=== PATIENT | male | born 1995 | race Caucasian/White ===

== ENCOUNTER 2019-01-21 17:23 | Emergency (ER) | payer SELFPAY ==
[2019-01-21] MEDS ORDERED: KETOROLAC TROMETHAMINE INJ/PF 30 MG/1 ML SDV IV ONE (18:21)
[2019-01-21] MEDS ORDERED: ONDANSETRON HCL INJ/PF 4 MG/2 ML SDV IV ONE ×2 (18:21→19:39)
--- NOTE | 2019-01-21 18:23 | ER Document Report ---
Addendum entered and electronically signed by CLAUDINE KELLER NP 01/21/19 18:57: Course - Re-evaluation Re-evalutation: 01/21/19 18:57 Radiology on phone reports patient has a pneumomediastinum. Charge nurse aware. - Vital Signs Vital signs: Temp Pulse Resp BP Pulse Ox 98.6 F 103 H 18 113/69 98 01/21/19 18:01 01/21/19 18:01 01/21/19 18:01 01/21/19 18:01 01/21/19 18:01 - Laboratory Result Diagrams: 01/21/19 18:43 01/21/19 18:43 Original Note: ED Medical Screen (RME) - General Chief Complaint: Nausea/Vomiting/Diarrhea Stated Complaint: VOMITING Time Seen by Provider: 01/21/19 18:17 Primary Care Provider: ROSAMARIA OLIVER MD [Primary Care Provider] - Follow up as needed Mode of Arrival: Ambulatory Information source: Patient Notes: Patient presents emergency department with complaints of vomiting diarrhea that started last night. Also complains that he cannot breathe in the left upper quad abdominal pain. Denies fever. Reports his son was sick last week. Patient looks uncomfortable. Respiratory rate was even unlabored. Left upper quad left lower quad tender to palpate. Denies trauma. I have greeted and performed a rapid initial assessment of this patient. A comprehensive ED assessment and evaluation of the patient, analysis of test results and completion of the medical decision making process will be conducted by additional ED providers. Dictation of this chart was performed using voice recognition software; ther efore, there may be some unintended grammatical errors. TRAVEL OUTSIDE OF THE [place] IN LAST 30 DAYS: No - Related Data Allergies/Adverse Reactions: No Known Allergies Allergy (Verified 01/21/19 17:25) Physical Exam - Vital signs Vitals: Temp Pulse Resp BP Pulse Ox 98.6 F 103 H 18 113/69 98 01/21/19 18:01 01/21/19 18:01 01/21/19 18:01 01/21/19 18:01 01/21/19 18:01 Course - Vital Signs Vital signs: Temp Pulse Resp BP Pulse Ox 98.6 F 103 H 18 113/69 98 01/21/19 18:01 01/21/19 18:01 01/21/19 18:01 01/21/19 18:01 01/21/19 18:01 Doctor's Discharge - Discharge Referrals: ROSAMARIA OLIVER MD [Primary Care Provider] - Follow up as needed
[2019-01-21 18:53] LABS: HEMOGLOBIN 17.4 g/dL (13.5-17.0); MEAN CORPUSCULAR HEMOGLOBIN 29.2 pg (27.0-33.4); MEAN CORPUSCULAR HGB CONC 34.1 g/dL (32.0-36.0); MEAN CORPUSCULAR VOLUME 86 fl (80-97); PLATELET COUNT 339 10^3/uL (150-450); RED BLOOD COUNT 5.95 10^6/uL (4.35-5.55); RED CELL DISTRIBUTION WIDTH 13.4 % (11.5-14.0); WHITE BLOOD COUNT 22.9 10^3/uL (4.0-10.5)
--- NOTE | 2019-01-21 19:01 | RADIOLOGY REPORT (SQ) ---
EXAM DESCRIPTION: CHEST 2 VIEWS COMPLETED DATE/TIME: 01/21/2019 6:41 pm REASON FOR STUDY: diff breathing, upper back pain COMPARISON: 08/29/2015 TECHNIQUE: Frontal and lateral radiographic views of the chest acquired. NUMBER OF VIEWS: Two view. LIMITATIONS: None. FINDINGS: LUNGS AND PLEURA: No pneumothorax. No consolidation or pleural effusion. MEDIASTINUM AND HILAR STRUCTURES: Pneumomediastinum. HEART AND VASCULAR STRUCTURES: Stable. BONES: No acute findings. HARDWARE: None in the chest. OTHER: No other significant finding. IMPRESSION: Pneumomediastinum. No other acute findings. COMMENT: Results were called to Dr. Thompson at 1855 hours. TECHNICAL DOCUMENTATION: JOB ID: [id number] [place]-72 2010 [employer]- All Rights Reserved Reading location - IP/workstation name: [facility] [facility]
[2019-01-21 19:18] LABS: ALANINE AMINOTRANSFERASE 48 U/L (21-72); ALKALINE PHOSPHATASE 88 U/L (38-126); ASPARTATE AMINO TRANSFERASE 42 U/L (17-59); BILIRUBIN,DIRECT 0.5 mg/dL (0.0-0.4); BILIRUBIN,TOTAL 1.9 mg/dL (0.2-1.3); BLOOD UREA NITROGEN 20 mg/dL (7-20); CALCIUM 11.9 mg/dL (8.4-10.2); GLUCOSE 168 mg/dL (75-110); POTASSIUM 4.4 mmol/L (3.6-5.0); TOTAL PROTEIN 10.9 g/dL (6.3-8.2)
[2019-01-21 19:21] LABS: ABSOLUTE LYMPHOCYTES# (MANUAL) 1.1 10^3/uL (0.5-4.7); ABSOLUTE MONOCYTES # (MANUAL) 0.9 10^3/uL (0.1-1.4); BAND NEUTROPHILS % (MANUAL) 1 % (3-5); BASOPHILS % (MANUAL) 0 % (0-2); EOSINOPHILS % (MANUAL) 0 % (0-6); LYMPHOCYTES % (MANUAL) 5 % (13-45); MONOCYTES % (MANUAL) 4 % (3-13); SEGMENTED NEUTROPHILS % (MAN) 90 % (42-78); TOTAL CELLS COUNTED 100
[2019-01-21 19:23] LABS: CARBON DIOXIDE 20 mmol/L (22-30); CHLORIDE 99 mmol/L (98-107); SODIUM 143.8 mmol/L (137-145)
[2019-01-21 19:24] LABS: PLATELET COMMENT ADEQUATE
[2019-01-21 19:25] LABS: RBC MORPHOLOGY COMMENT NORMO-CYTIC/CHROMIC
[2019-01-21] MEDS ORDERED: MORPHINE SULFATE 10 MG/ML INJ IV ONE (19:39)
[2019-01-21] MEDS ORDERED: NORMAL SALINE 1000 ML 1,000 ML IV ONE ×3 (19:40→23:25)
--- NOTE | 2019-01-21 19:43 | ER Document Report ---
ED GI/ - General Chief Complaint: Nausea/Vomiting/Diarrhea Stated Complaint: VOMITING Time Seen by Provider: 01/21/19 18:17 Primary Care Provider: ROSAMARIA OLIVER MD [Primary Care Provider] - Follow up as needed Mode of Arrival: Ambulatory Information source: Patient TRAVEL OUTSIDE OF THE [place] IN LAST 30 DAYS: No - HPI Patient complains to provider of: Abdominal pain, Diarrhea, Vomiting Onset: Other - Ongoing for the past 2 days. Timing/Duration: Sudden Quality of pain: Sharp Severity at maximum: Moderate Severity in ED: Moderate Pain Level: 2 Location: Epigastric Associated symptoms: Diarrhea, Nausea, Vomiting Exacerbated by: Denies Relieved by: Denies Similar symptoms previously: No Recently seen / treated by doctor: No - Related Data Allergies/Adverse Reactions: No Known Allergies Allergy (Verified 01/21/19 17:25) Past Medical History - General Information source: Patient - Social History Smoking Status: Current Some Day Smoker Chew tobacco use (# tins/day): No Frequency of alcohol use: None Drug Abuse: None Family History: Reviewed & Not Pertinent Patient has suicidal ideation: No Patient has homicidal ideation: No Renal/ Medical History: Denies: Hx Peritoneal Dialysis Review of Systems - Review of Systems Constitutional: No symptoms reported EENT: No symptoms reported Cardiovascular: No symptoms reported Respiratory: No symptoms reported Gastrointestinal: Abdominal pain, Diarrhea, Nausea, Vomiting Genitourinary: No symptoms reported Male Genitourinary: No symptoms reported Musculoskeletal: No symptoms reported Skin: No symptoms reported Hematologic/Lymphatic: No symptoms reported Neurological/Psychological: No symptoms reported -: Yes All other systems reviewed and negative Physical Exam - Vital signs Vitals: Temp Pulse Resp BP Pulse Ox 98.6 F 103 H 18 113/69 98 01/21/19 18:01 01/21/19 18:01 01/21/19 18:01 01/21/19 18:01 01/21/19 18:01 Interpretation: Normal - General General appearance: Appears well, Alert - HEENT Head: Normocephalic, Atraumatic Eyes: Normal Pupils: PERRL - Respiratory Respiratory status: No respiratory distress Chest status: Nontender Breath sounds: Normal Chest palpation: Normal - Cardiovascular Rhythm: Regular Heart sounds: Normal auscultation Murmur: No - Abdominal Inspection: Normal Distension: No distension Bowel sounds: Normal Tenderness: Tender Organomegaly: No organomegaly - Back Back: Normal, Nontender - Extremities General upper extremity: Normal inspection, Nontender, Normal color, Normal ROM, Normal temperature General lower extremity: Normal inspection, Nontender, Normal color, Normal ROM, Normal temperature, Normal weight bearing. No: Glynn's sign - Neurological Neuro grossly intact: Yes Cognition: Normal Orientation: AAOx4 Curt Coma Scale Eye Opening: Spontaneous Esko Coma Scale Verbal: Oriented Esko Coma Scale Motor: Obeys Commands Curt Coma Scale Total: 15 Speech: Normal Motor strength normal: LUE, RUE, LLE, RLE Sensory: Normal - Psychological Associated symptoms: Normal affect, Normal mood - Skin Skin Temperature: Warm Skin Moisture: Dry Skin Color: Normal Course - Vital Signs Vital signs: Temp Pulse Resp BP Pulse Ox 98.4 F 103 H 17 113/69 100 01/22/19 02:30 01/21/19 18:01 01/22/19 02:30 01/22/19 02:30 01/22/19 02:30 - Laboratory Result Diagrams: 01/21/19 18:43 01/21/19 23:45 Laboratory results interpreted by me: 01/21/19 01/21/19 01/21/19 18:43 18:43 23:45 WBC 22.9 H RBC 5.95 H Hgb 17.4 H Seg Neuts % (Manual) 90 H Band Neutrophils % 1 L Lymphocytes % (Manual) 5 L Abs Neuts (Manual) 20.8 H Chloride 109 H Carbon Dioxide 20 L 20 L Anion Gap 25 H Creatinine 2.42 H 1.63 H Est GFR ( Amer) 41 L Est GFR (Non-Af Amer) 34 L 53 L Glucose 168 H 122 H Calcium 11.9 H Total Bilirubin 1.9 H Direct Bilirubin 0.5 H Total Protein 10.9 H Albumin 6.3 H Urine Protein Urine Ketones Urine Ascorbic Acid 01/21/19 23:59 WBC RBC Hgb Seg Neuts % (Manual) Band Neutrophils % Lymphocytes % (Manual) Abs Neuts (Manual) Chloride Carbon Dioxide Anion Gap Creatinine Est GFR ( Amer) Est GFR (Non-Af Amer) Glucose Calcium Total Bilirubin Direct Bilirubin Total Protein Albumin Urine Protein 100 H Urine Ketones 100 H Urine Ascorbic Acid 20 H - Diagnostic Test Radiology reviewed: Reports reviewed - EKG Interpretation by Me EKG shows normal: Sinus rhythm Rate: Normal Rhythm: NSR When compared to previous EKG there are: No significant change Additional EKG results interpreted by me: 01/21/19 21:19 No STEMI. Critical Care Note - Critical Care Note Total time excluding time spent on procedures (mins): 50 Comments: Time was spent on multiple consults, evaluations in the ED, review of labs and imaging studies. Discharge - Discharge Clinical Impression: Severe dehydration, Pneumomediastinum, Boerhaave's syndrome, Pneumothorax, acute, Marijuana abuse Abdominal pain Qualifiers: Abdominal location: epigastric Qualified Code(s): R10.13 - Epigastric pain Nausea and vomiting Qualifiers: Vomiting type: unspecified Vomiting Intractability: non-intractable Qualified Code(s): R11.2 - Nausea with vomiting, unspecified Acute renal failure Qualifiers: Acute renal failure type: unspecified Qualified Code(s): N17.9 - Acute kidney failure, unspecified Sepsis Qualifiers: Sepsis type: sepsis due to unspecified organism Qualified Code(s): A41.9 - Sepsis, unspecified organism Leukocytosis (leucocytosis) Qualifiers: Leukocytosis type: unspecified Qualified Code(s): D72.829 - Elevated white blood cell count, unspecified Condition: Stable Disposition: [facility] Referrals: ROSAMARIA OLIVER MD [Primary Care Provider] - Follow up as needed
[2019-01-21 19:49] LABS: ALBUMIN 6.3 g/dL (3.5-5.0); ANION GAP 25 (5-19)
[2019-01-21 19:58] LABS: PROTHROMBIN TIME 14.2 SEC (11.4-15.4)
[2019-01-21 19:59] LABS: PARTIAL THROMBOPLASTIN TIME 28.6 SEC (23.5-35.8)
[2019-01-21 20:16] LABS: CREATINE KINASE MB 0.68 ng/mL (<4.55)
[2019-01-21 20:18] LABS: TROPONIN I < 0.012 ng/mL
[2019-01-21] MEDS ORDERED: LEVOFLOXACIN 750 MG/D5W RTU 750 MG/150 ML RTUPB IV ONE (21:22)
[2019-01-21] MEDS ORDERED: METRONIDAZOLE 500 MG/NS RTU 500 MG/100 ML RTUPB IV ONE (21:23)
[2019-01-21] MEDS ORDERED: PANTOPRAZOLE SODIUM 40 MG VIAL IV ONE (22:28)
--- NOTE | 2019-01-21 23:16 | RADIOLOGY REPORT (SQ) ---
EXAM DESCRIPTION: CT CHEST ANGIOGRAPHY WITHOUT THEN WITH IV CONTRAST, CT ABDOMEN PELVIS WITH IV CONTRAST COMPLETED DATE/TME: 01/21/2019 00:00 CLINICAL HISTORY: 23 years, Male, CHEST PAIN COMPARISON: None. TECHNIQUE: Contrast enhanced CT of the chest, abdomen, and pelvis was performed. Oblique MIPS were also created. Coronal and sagittal reformations were acquired. Images stored on PACS. All CT scanners at this facility use dose modulation, iterative reconstruction, and/or weight based dosing when appropriate to reduce radiation dose to as low as reasonably achievable (ALARA). [facility]: Dose Right [facility]: CareDose [facility]: Dose Right [facility]: Teradose 4D [facility]: [employer] LIMITATIONS: None. FINDINGS: Central airways are patent. Lung windows show small bilateral pneumothoraces. Lungs are otherwise clear. Mediastinal windows show diffuse pneumomediastinum. This extends into the base of the neck as well as along the anterior margins of the pericardium. No significant hilar or mediastinal lymph node enlargement is appreciated. Heart and great vessels show no suspicious finding. The study is adequate for the evaluation of pulmonary emboli. No filling defects are identified to the proximal segmental level. The esophagus appears relatively normal. Specifically, there is no evidence of esophageal wall thickening. Bone windows through the chest show no destructive osseous lesions or fractures. The liver, spleen, pancreas, gallbladder, and both adrenal glands appear normal. Both kidneys enhance symmetrically. No hydronephrosis or hydroureter. Urinary bladder is partially collapsed, thus its evaluation is limited. Delayed imaging reveals no suspicious finding. The small and large bowel appear normal in caliber without areas of focal wall thickening. No evidence of bowel obstruction. The appendix is not visualized; however, no pericecal inflammatory changes are appreciated. Vascular structures opacify with contrast normally. No suspicious lymphadenopathy or drainable fluid collections are appreciated. Bone windows through the abdomen/pelvis reveal no destructive osseous lesions. IMPRESSION: Chest: Trace bilateral pneumothoraces with diffuse pneumomediastinum. No identifiable cause is evident. No evidence of pulmonary embolism or other acute abnormality within the chest. Abdomen/pelvis: No acute abnormality within the abdomen or pelvis. TECHNICAL DOCUMENTATION: Quality ID # [id number]: Final reports with documentation of one or more dose reduction techniques (e.g., Automated exposure control, adjustment of the mA and/or kV according to patient size, use of iterative reconstruction technique) copyright 2011 [employer]- All Rights Reserved
[2019-01-21] MEDS ORDERED: LIDOCAINE 2% URO-JET 5 ML KIT MM ONE (23:36)
[2019-01-21] MEDS ORDERED: METOCLOPRAMIDE HCL INJ/PF 10 MG/2 ML SDV IV ONE (23:48)
--- NOTE | 2019-01-21 23:54 | EKG REPORT ---
SEVERITY:- NORMAL ECG - SINUS RHYTHM : Confirmed by: Myra Dejesus 21-Jan-2019 23:53:40
[2019-01-22 00:26] LABS: COLOR,URINE DARK YELLOW
[2019-01-22 00:27] LABS: APPEARANCE,URINE CLEAR; BILIRUBIN,URINE NEGATIVE (NEGATIVE); GLUCOSE, URINE NEGATIVE (NEGATIVE); KETONES,URINE 100 mg/dL (NEGATIVE); LEUKOCYTE ESTERASE,URINE NEGATIVE (NEGATIVE); NITRITE,URINE NEGATIVE (NEGATIVE); PROTEIN,URINE 100 mg/dL (NEGATIVE); URINE SPECIFIC GRAVITY > 1.060; UROBILINOGEN,URINE NEGATIVE mg/dL (<2.0)
[2019-01-22 00:46] LABS: ANION GAP 14 (5-19); BLOOD UREA NITROGEN 20 mg/dL (7-20); CALCIUM 9.1 mg/dL (8.4-10.2); CARBON DIOXIDE 20 mmol/L (22-30); CHLORIDE 109 mmol/L (98-107); GLUCOSE 122 mg/dL (75-110); POTASSIUM 4.8 mmol/L (3.6-5.0); SODIUM 143.2 mmol/L (137-145)
[2019-01-22 02:00] LABS: URINE AMPHETAMINES SCREEN NEGATIVE; URINE BARBITURATES SCREEN NEGATIVE; URINE BENZODIAZEPINES SCREEN NEGATIVE; URINE COCAINE SCREEN NEGATIVE; URINE MARIJUANA (THC) SCREEN UNCONFIRMED POSITIVE; URINE METHADONE SCREEN NEGATIVE; URINE PHENCYCLIDINE SCREEN NEGATIVE
[2019-01-22 02:42] VITALS: BP 113/69
== END 2019-01-22 02:50 | disposition short-term general hospital (02) ==
LOC: ER 17:23
DX: E86.0 Dehydration (principal); J98.2 Interstitial emphysema; K22.3 Perforation of esophagus; J93.83 Other pneumothorax; F12.10 Cannabis abuse, uncomplicated; R10.13 Epigastric pain; N17.9 Acute kidney failure, unspecified; A41.9 Sepsis, unspecified organism; D72.829 Elevated white blood cell count, unspecified; R11.2 Nausea with vomiting, unspecified; R19.7 Diarrhea, unspecified; F17.200 Nicotine dependence, unspecified, uncomplicated
CPT/HCPCS: 93005; 99291; 96361; 96375; 96365; 96366; 96367; 36415 ×2; 87040; 82553; 82550; 83690; 85025; 85610; 85730; 80053; 81001; 84484; 80307; 83605; 71046; 71275; 74177; 93010; J1885; J2765; J3490; J2270; S0164; J2405; J7030 ×2; J1956